=== PATIENT | female | born 1960 | race Caucasian/White ===

== ENCOUNTER 2021-10-06 09:24 | Outpatient (CLI) | payer MEDICAID, SELFPAY ==
[2021-10-06 11:30] LABS: Albumin* 4.1 g/dL (3.3-5.0); Chloride* 105 mmol/L (96-114)
[2021-10-06 11:31] LABS: Potassium* 4.4 mmol/L (3.6-5.1)
[2021-10-06 11:33] LABS: Aspartate Amino Transferase* 25 U/L (12-35); Bilirubin Total* 0.3 mg/dL (0.1-1.5); Blood Urea Nitrogen* 20 mg/dL (7-30); Carbon Dioxide* 27 mmol/L (20-32); Cholesterol* 214 mg/dL (90-199); Creatinine* 0.7 mg/dL (0.5-1.5); Estimated Glomerular Filt Rate 99 ml/min; Total Protein* 6.6 g/dL (6.0-8.3)
[2021-10-06 11:34] LABS: Alanine Aminotransferase* 25 U/L (4-35); Alkaline Phosphatase* 82 U/L (40-150); Calcium* 9.1 mg/dL (8.4-10.6); Glucose* 107 mg/dL (60-115); HDL Cholesterol* 36 mg/dL (>=50); LDL Cholesterol Calculated 126 mg/dL (<100); Triglycerides* 262 mg/dL (40-149)
[2021-10-07 09:13] LABS: Sodium* 138 mmol/L (135-149)
[2021-10-08 12:45] LABS: Iron* 78 ug/dL (37-170)
[2021-10-08 12:55] LABS: Percent Iron Saturation 25 % (20-50); Total Iron Binding Capacity 312 ug/dL (265-497)
[2021-10-08 13:36] LABS: Vitamin B12* 476 pg/mL (243-894)
== END 2021-10-06 09:25 | disposition home or self-care (01) ==
LOC: NFLDREF 09:25
PROVIDERS: PCP Physician Assistant Medical; Visit Provider Physician Assistant Medical
DX: Z00.00 Encounter for general adult medical examination without abnormal findings (principal); D64.9 Anemia, unspecified; K21.9 Gastro-esophageal reflux disease without esophagitis
CPT/HCPCS: 80053; 80061; 82607; 83540; 83550

== ENCOUNTER 2021-10-08 09:48 | Outpatient (CLI) | payer MEDICAID, SELFPAY | END 2021-10-08 09:49 | disposition home or self-care (01) | PROVIDERS: PCP Physician Assistant Medical; Visit Provider Physician Assistant Medical | DX: Z00.00 Encounter for general adult medical examination without abnormal findings (principal); D64.9 Anemia, unspecified | CPT/HCPCS: 87624; 88175 ==

== ENCOUNTER 2021-12-10 07:23 | Outpatient (CLI) | payer MEDICAID, SELFPAY | END 2021-12-10 07:24 | disposition home or self-care (01) | PROVIDERS: PCP Physician Assistant Medical; Visit Provider Surgery | DX: K44.9 Diaphragmatic hernia without obstruction or gangrene (principal); K92.2 Gastrointestinal hemorrhage, unspecified; K63.5 Polyp of colon; K57.30 Diverticulosis of large intestine without perforation or abscess without bleeding; Z83.71 Family history of colonic polyps | CPT/HCPCS: 43239; 45385; 88305; 88342; 99153; J1200; J2250; J3010 ==

== ENCOUNTER 2021-12-11 13:33 | Outpatient (CLI) | payer MEDICAID, SELFPAY ==
--- NOTE | 2021-12-11 13:40 | CRLHL7_ITS ---
For Patients: As a result of the Century Cures Act, medical imaging exams and procedure reports are released immediately into your electronic medical record. You may view this report before your referring provider. If you have questions, please contact your health care provider. BILATERAL SCREENING MAMMOGRAM WITH COMPUTER-AIDED DETECTION TECHNIQUE: CC and MLO views were obtained. These mammographic images have been obtained using full-field digital technique. These mammographic images were interpreted with the benefit of computer-aided detection. COMPARISON FILM: No previous, re-establish baseline 10+ years. FINDINGS: There are scattered areas of fibroglandular density IMPRESSION: There is no radiographic evidence for malignancy. ASSESSMENT: BI-RADS Category 1: Negative RECOMMENDATION: Routine screening mammogram in 1 year. A lay language report of this examination will be provided to the patient. Reza Weiss M.D. Diagnostic Radiologist [email or web address] JIMMY/Dictated by: Reza Weiss MD @ 12/11/2021 2:16:00 PM (Electronically Signed)
== END 2021-12-11 13:34 | disposition home or self-care (01) ==
LOC: MAMMO 13:33
PROVIDERS: PCP Physician Assistant Medical; Visit Provider Physician Assistant Medical
DX: Z12.31 Encounter for screening mammogram for malignant neoplasm of breast (principal)
CPT/HCPCS: 77063; 77067

== ENCOUNTER 2022-09-08 13:24 | Outpatient (CLI) | payer MEDICAID, SELFPAY | END 2022-09-08 13:25 | disposition home or self-care (01) | LOC: LKVREF 13:30 | PROVIDERS: PCP Physician Assistant Medical; Visit Provider Physician Assistant Medical | DX: I10 Essential (primary) hypertension (principal); D64.9 Anemia, unspecified; E78.5 Hyperlipidemia, unspecified | CPT/HCPCS: 84439; 84443 ==

== ENCOUNTER 2022-09-16 14:31 | Outpatient (CLI) | payer MEDICAID, SELFPAY ==
--- NOTE | 2022-09-16 15:00 | CRLHL7_ITS ---
For Patients: As a result of the Century Cures Act, medical imaging exams and procedure reports are released immediately into your electronic medical record. You may view this report before your referring provider. If you have questions, please contact your health care provider. Indication: Palpable lump Technique: Grayscale and color Doppler ultrasound of the left upper chest soft tissues performed. Comparison: None Findings: There is a circumscribed isoechoic solid mass without internal vascularity within the subcutaneous tissues. This measures 3.6 x 1.2 x 2.6 cm. Impression: Subcutaneous lipoma. Dictated by Reza Weiss MD @ 09/16/2022 3:11:38 PM (Electronically Signed)
== END 2022-09-16 14:32 | disposition home or self-care (01) ==
LOC: US 14:31
PROVIDERS: PCP Physician Assistant Medical; Visit Provider Physician Assistant Medical
DX: M79.89 Other specified soft tissue disorders (principal)
CPT/HCPCS: 76604

== ENCOUNTER 2022-09-28 12:33 | Outpatient (CLI) | payer MEDICAID, SELFPAY ==
[2022-09-28 13:45] VITALS: BP 166/81; PULSE 99
--- NOTE | 2022-09-28 14:54 | PN_ITS ---
REFERRING AND PRIMARY PROVIDER Zuleyka Fajardo PA-C INDICATIONS Dyspnea. ? Resting EKG: ?Sinus rhythm, 79 beats per minute, flipped T-waves between V1 without any ST changes. ? Resting blood pressure 123/79. STRESS TEST The patient was exercised following standard Jung protocol on the treadmill. ?Test was terminated due to patient reaching heart rate and reaching exercise capacity, having shortness of breath. ?There was no ischemia or arrhythmia noted. ?Duration of stress test was 5 minutes and 16 seconds, equivalent to 7.1 mets. ?She had a maximum heart rate of 150 beats per minute which was 111% and the calculated target heart rate of 135. ?She had a maximum blood pressure of 108/94. ?Rate pressure product was 23,040. ?The patient tolerated the stress test well, echo images are pending to couple this for a full formal diagnostic. ? ASSESSMENT Subjectively negative, objectively negative, EKG portion of this stress test. PLAN Patient discharged to home, she will await for formal diagnostic once the echo images are read and her primary care provider has a full formal report. Dictated Date: 09/28/2022 14:54:30 CDT Internal Job ID: [id number]
== END 2022-09-28 12:34 | disposition home or self-care (01) ==
LOC: STRESS 12:34
PROVIDERS: PCP Physician Assistant Medical; Visit Provider Family Medicine
DX: R06.09 Other forms of dyspnea (principal)
CPT/HCPCS: 93016; 93325; 93351

== ENCOUNTER 2022-10-12 07:28 | Outpatient (CLI) | payer MEDICAID, SELFPAY | END 2022-10-12 07:29 | disposition home or self-care (01) | LOC: NFLDREF 10-13 08:17 | PROVIDERS: PCP Physician Assistant Medical; Referring Provider Physician Assistant Medical; Visit Provider Physician Assistant Medical | DX: E03.9 Hypothyroidism, unspecified (principal); R79.89 Other specified abnormal findings of blood chemistry | CPT/HCPCS: 84439; 84443 ==

== ENCOUNTER 2022-10-15 10:11 | Outpatient (CLI) | payer MEDICAID, SELFPAY ==
--- NOTE | 2022-10-15 10:15 | CRLHL7_ITS ---
For Patients: As a result of the Century Cures Act, medical imaging exams and procedure reports are released immediately into your electronic medical record. You may view this report before your referring provider. If you have questions, please contact your health care provider. INDICATION: HYPOTHYROIDISM COMPARISON: none TECHNIQUE: Jules scale and color Doppler images were acquired of the thyroid gland. FINDINGS: The thyroid gland demonstrates heterogeneous echogenicity and has a smooth outer contour. The right lobe measures 4.0 x 1.3 x 1.3 cm and the left lobe measures 3.0 x 1.0 x 1.3 cm in size. There are no suspicious masses or nodules. The color Doppler images demonstrate normal vascularity. Circumscribed nodule located posterior to the right thyroid lobe measuring 8 x 5 x 7 millimeters. IMPRESSION: Heterogeneous thyroid. No thyroid nodule appears Probable lymph node posterior to the right thyroid lobe measuring 8 millimeters. Dictated by Reza Weiss MD @ 10/15/2022 11:33:03 AM (Electronically Signed)
== END 2022-10-15 10:12 | disposition home or self-care (01) ==
PROVIDERS: PCP Physician Assistant Medical; Visit Provider Physician Assistant Medical
DX: E03.9 Hypothyroidism, unspecified (principal)
CPT/HCPCS: 76536

== ENCOUNTER 2022-10-18 19:59 | Outpatient (CLI) | payer MEDICAID, SELFPAY ==
--- NOTE | 2022-10-27 08:04 | W.PM.SLEEP ---
Sleep Study Details Details Interpreting Provider: Deanne Date of Sleep Study: 10/18/22 Sleep Study Details: STUDY TYPE:? Hospital-based ? BMI:? 35.5 ORDERING PROVIDER:Brianda Fajardo INDICATION:? Concerns about sleep apnea ? SLEEP SUMMARY:? Total sleep time 250.5 minutes, efficiency 57.2, arousal index 37.1 RESPIRATORY SUMMARY:? Mean oxygen awake 97 asleep 97, minimum 87 0.3 minutes oxygen between 80 and 88% AHI 8.4, RDI 24.2. No supine REM sleep was seen The nonsupine REM AHI was 35 PERIODIC LIMB MOVEMENTS OF SLEEP:? None CARDIAC:? Awake 68, asleep 62. No arrhythmias noted IMPRESSION:? Moderate obstructive sleep apnea with an RDI of 24.2, AHI 8.4, so nonsupine REM AHI 35. RECOMMENDATION: Treatment options would include AutoSet CPAP, dental appliance and/or weight loss.
== END 2022-10-18 20:00 | disposition home or self-care (01) ==
PROVIDERS: PCP Physician Assistant Medical; Visit Provider Physician Assistant Medical
DX: G47.33 Obstructive sleep apnea (adult) (pediatric) (principal)
CPT/HCPCS: 95810

== ENCOUNTER 2022-12-16 14:17 | Outpatient (CLI) | payer MEDICAID, SELFPAY | END 2022-12-16 14:18 | disposition home or self-care (01) | LOC: LKVREF 14:19 | PROVIDERS: PCP Physician Assistant Medical; Visit Provider Physician Assistant Medical | DX: Z00.00 Encounter for general adult medical examination without abnormal findings (principal); E03.9 Hypothyroidism, unspecified; I10 Essential (primary) hypertension; E78.5 Hyperlipidemia, unspecified; D64.9 Anemia, unspecified; B00.1 Herpesviral vesicular dermatitis | CPT/HCPCS: 84439; 84443; 87529 ==

== ENCOUNTER 2023-02-24 09:11 | Outpatient (RCR) | payer MEDICAID, SELFPAY | END 2023-03-17 13:35 | disposition home or self-care (01) | PROVIDERS: PCP Physician Assistant Medical; Visit Provider Nurse Practitioner Family | DX: R42 Dizziness and giddiness (principal); Z51.89 Encounter for other specified aftercare | CPT/HCPCS: 97110; 97162 ==

== ENCOUNTER 2023-10-06 09:45 | Outpatient (CLI) | payer MEDICAID, SELFPAY | END 2023-10-06 09:46 | disposition home or self-care (01) | PROVIDERS: PCP Physician Assistant Medical; Visit Provider Physician Assistant Medical | DX: E78.5 Hyperlipidemia, unspecified (principal); E03.9 Hypothyroidism, unspecified; I10 Essential (primary) hypertension; Z11.59 Encounter for screening for other viral diseases | CPT/HCPCS: 80053; 80061; 84443; 86703; 86803 ==

== ENCOUNTER 2023-12-22 14:30 | Outpatient (CLI) | payer MEDICAID, SELFPAY ==
--- OUTSIDE RECORDS SUMMARY | 2023-12-22 14:32 | XMS_ITS | Encounter Summary ---
[facility] Address [address] [place] [id number] Care Team Providers Care Core Checker Name Role Phone Unavailable Primary Care Provider Unavailabl e Reason for Visit * Reason Comments Eye Exam Encounter Details Date Type Department Care Team (Late st Contact Info) Description 2023 11:10 AM CDT Office Visit [facility] [place] [id number] [place] [phone] Jami Knight, OD [address] [place] [address] Examination of eyes and vision (Primary Dx); Astigmatism of both eyes with presbyopia; Age-related nuclear cataract of both eyes Social History Tobacco Use Types Packs/Day Years Used Date Smoking Tobacco: Never Tobacco Cessation:Counseling Given: Not Answered Alcohol Use Standard Drinks/Week Comments Not Currently 0 (1 standard drink = 0.6 oz pur e alcohol) Sex and Gender Information Value Date Recorded Sex Assigned at Not on file Gender Identity Not on file Sexual Orientation Not on file documented as of this encounter Progress Notes * Jami Knight, OD - 2023 11:10 AM CDT Patient is alert and feels well. Medical history, current medications, and allergies reviewed. Routine eye exam. Assessment: ICD-10-CM 1. Examination of eyes and vision Z01.00 Refractive State, Determination Of - Bilateral 2. Astigmatism of both eyes with presbyopia H52.203 Refractive State, Determination Of - Bilateral H52.4 3. Age-related nuclear cataract of both eyes H25.13 Refractive State, Determination Of - Bilateral Plan: 1-2. Discussed findings with patient. Rx given for new glasses if desired. 3. Monitor. Surgery consult not recommended at this time. UV protection advised. RTC 1 year or sooner as needed. documented in this encounter Plan of Treatment Not on file documented as of this encounter Visit Diagnoses Diagnosis Examination of eyes and vision- Primary Astigmatism of both eyes with presbyopia Age-related nuclear cataract of both eyes Senile nuclear sclerosis documented in this encounter
--- OUTSIDE RECORDS SUMMARY | 2023-12-22 14:32 | XMS_ITS | Clinical Summary ---
Author Organization [facility] Address [address], [place] [address] Care Team Providers Care Truck Loader Overhead Crane Name Role Phone Unavailable Primary Care Provider Unavailabl e Source Comments You are receiving this document as you are listed as the primary care provider,follow-up provider, or the patient has been referred to you for consultation.This is in compliance with the Medicare and[facility] EHR Incentive Program,which states Providers who transition their patient to another setting of careor provider of care or refers their patient to another provider of care shouldprovide summary care record for each transition of care or referral. [facility] Allergies No known active allergies Medications Medication Sig Dispensed Refills Start Date End Date Status levothyroxine (SYNTHROID) 50 MCG tablet Take 1 Tablet (50 mcg) by mouth daily. 08/19/2023 Active losartan (COZAAR) 25 MG tablet Take 1 Tablet (25 mg) by mouth daily. 11/19/2023 Active omeprazole (PRILOSEC) 20 MG capsule Take 1 Capsule (20 mg) by mouth every morning. 11/03/2023 Active rosuvastatin (CRESTOR) 10 MG tablet Take 1 Tablet (10 mg) by mouth daily at bedtime. 10/19/2023 Active valACYclovir (VALTREX) 1 g tablet Take 1 Tablet (1,000 mg) by mouth daily. 10/06/2023 Active Encounters Date Type Department Care Team Description 2023 11:10 AM CDT Office Visit [facility] [place] [address] [place] [phone] AntoniaJami wallace A, OD Examination of eyes and vision (Primary Dx); Astigmatism of both eyes with presbyopia; Age-related nuclear cataract of both eyes from Last 3 Months Family History Medical History Relation Name Comments Amblyopia/Strabismus Negative Family History Cataract Negative Family History Glaucoma Negative Family History Macular Degeneration Negative Family History Retinal Detachment Negative Family History Social History Tobacco Use Types Packs/Day Years Used Date Smoking Tobacco: Never Tobacco Cessation:Counseling Given: Not Answered Alcohol Use Standard Drinks/Week Comments Not Currently 0 (1 standard drink = 0.6 oz pur e alcohol) Sex and Gender Information Value Date Recorded Sex Assigned at Not on file Gender Identity Not on file Sexual Orientation Not on file Plan of Treatment Health Maintenance Due Date Last Done Comments Cervical Cancer Screening Due 1960 Colon Cancer Screening Plan Due 1960 Hep C Screening (Preventive Services) 1960 Mammogram 1960 HIV Screening (Preventive Services) 1976 Adult Preventive Visit 1978 Cholesterol 2005 Zoster/Shingles (2 of 2) 02/07/2023 12/13/2022 COVID-19 Vaccine (1 - 2023-2 5 season) 2023 Influenza (#1) 2023 12/13/2022, 12/18/2021 DTaP/Tdap/Td (2 - Tdap) 12/13/2032 12/13/2022 RSV (1 - 1-dose 75+ series) 12/13/2035 HepA Aged Out No longer eligi ble based on patient's age to complete this topic HepB Aged Out No longer eligi ble based on patient's age to complete this topic Hib Aged Out No longer eligi ble based on patient's age to complete this topic IPV (Polio) Aged Out No longer eligi ble based on patient's age to complete this topic MCV4 Aged Out No longer eligi ble based on patient's age to complete this topic Pneumococcal Aged Out No longer eligi ble based on patient's age to complete this topic
--- NOTE | 2023-12-22 14:40 | CRLHL7_ITS ---
For Patients: As a result of the Century Cures Act, medical imaging exams and procedure reports are released immediately into your electronic medical record. You may view this report before your referring provider. If you have questions, please contact your health care provider. BILATERAL DIGITAL SCREENING MAMMOGRAM WITH COMPUTER-AIDED DETECTION AND TOMOSYNTHESIS CLINICAL HISTORY: Routine screening exam. COMPARISON: 12/11/2021. TECHNIQUE: Digital mammogram in CC and MLO projections including computer-aided detection (CAD). Tomosynthesis was used in this interpretation. BREAST COMPOSITION: There are scattered areas of fibroglandular density. FINDINGS: RIGHT Breast: No suspicious findings. LEFT Breast: Focal asymmetric density retroareolar plane 4 cm from the nipple. IMPRESSION: LEFT breast asymmetry/mass. RECOMMENDATIONS: Additional mammographic views of the LEFT breast including 3D spot compression CC/MLO. LEFT breast ultrasound may also be required. BI-RADS Category 0: Incomplete: Need Additional Imaging Evaluation and/or Prior Mammograms for Comparison [facility] will contact the patient for follow-up. A lay language report of this examination will be provided to the patient. Dictated by Reza Weiss MD @ 12/26/2023 10:25:20 AM jj/Dictated by: Reza Weiss MD @ 12/26/2023 10:25:00 AM (Electronically Signed)
== END 2023-12-22 14:31 | disposition home or self-care (01) ==
LOC: MAMMO 14:30
PROVIDERS: PCP Physician Assistant Medical; Visit Provider Physician Assistant Medical
DX: Z12.31 Encounter for screening mammogram for malignant neoplasm of breast (principal); N63.20 Unspecified lump in the left breast, unspecified quadrant
CPT/HCPCS: 77063; 77067; T1013

== ENCOUNTER 2024-01-10 10:36 | Outpatient (CLI) | payer MEDICAID, SELFPAY ==
--- NOTE | 2024-01-10 10:45 | CRLHL7_ITS ---
For Patients: As a result of the Cures Act, medical imaging exams and procedure reports are released immediately into your electronic medical record. You may view this report before your referring provider. If you have questions, please contact your health care provider. DIGITAL DIAGNOSTIC LEFT MAMMOGRAM USING TOMOSYNTHESIS AND COMPUTER-AIDED DETECTION LEFT BREAST ULTRASOUND CLINICAL HISTORY: LEFT breast mass/asymmetry. COMPARISON: 12/22/2023. TECHNIQUE: Digital LEFT mammogram in two projections. Tomosynthesis was used in this interpretation. Real-time ultrasound imaging of LEFT breast with imaging documentation. BREAST COMPOSITION: There are scattered areas of fibroglandular density. FINDINGS: 3D spot compression CC/MLO LEFT breast mammogram images submitted. Decreased conspicuity of previously noted nodular density within the retroareolar region. No architectural distortion. No suspicious calcifications. Targeted LEFT breast ultrasound performed in the retroareolar plane slightly upper outer quadrant. In this location, there is an ovoid hypoechoic nodule or cyst at posterior depth measuring 7 x 4 x 10 millimeters. No internal vascularity. No distal acoustic shadowing. IMPRESSION: Benign cyst or fibroadenoma posterior depth LEFT breast retroareolar plane 2 o`clock measuring 10 millimeters. No suspicious findings. RECOMMENDATIONS: Annual BILATERAL screening mammography. Results and recommendations discussed with the patient. BI-RADS Category 2: Benign A lay language report of this examination will be provided to the patient. Dictated by Reza Weiss MD @ 01/10/2024 1:03:05 PM vielka/Dictated by: Reza Weiss MD @ 01/10/2024 1:03:00 PM (Electronically Signed)
--- OUTSIDE RECORDS SUMMARY | 2024-01-10 10:45 | XMS_ITS | Encounter Summary ---
[facility] Address [address] [place] [address] Care Team Providers Care Tack Puller Name Role Phone Unavailable Primary Care Provider Unavailabl e Reason for Visit * Reason Comments Eye Exam Encounter Details Date Type Department Care Team (Late st Contact Info) Description 2023 11:10 AM CDT Office Visit [facility] [place] [id number] [place] [phone] Jami Knight, OD [address] [place] [address] Examination of eyes and vision (Primary Dx); [...]
--- OUTSIDE RECORDS SUMMARY | 2024-01-10 10:45 | XMS_ITS | Clinical Summary ---
Author Organization [facility] Address [address], [place] [address] Care Team Providers Care Supervisor Filling And Packing Name Role Phone Unavailable Primary Care Provider Unavailabl e Source Comments You are receiving this document as you are listed as the primary care provider,follow-up provider, or the patient has been referred to you for consultation.This is in compliance with the Medicare and[facility] Centercaid EHR Incentive Program,which states Providers who transition their patient to another setting of careor provider of care or refers their patient to another provider of care shouldprovide summary care record for each transition of care or referral. [facility] Allergies No known active allergies Medications Medication [...] Description 2023 11:10 AM CDT Office Visit [facility] [place] [address] [place] [phone] AntoniaJami wallace A, OD Examination [...] (2 of 2) 02/07/2023 12/13/2022 COVID-19 Vaccine ( - 2023-2 5 season) 2023 Influenza (#1) [...] on patient's age to complete this topic RSV Aged Out No longer eligi ble based on patient's age to complete this topic MCV4 Aged Out No longer eligi ble based on patient's age to complete this topic Pneumococcal Aged Out No longer eligi ble based on patient's age to complete this topic
--- NOTE | 2024-01-10 11:15 | CRLHL7_ITS ---
For Patients: As a result of the Cures Act, medical imaging exams and procedure reports are released immediately into your electronic medical record. You may view this report before your referring provider. If you have questions, please contact your health care provider. PLEASE SEE DIGITAL DIAGNOSTIC LEFT MAMMOGRAM PERFORMED SAME DAY CRL:[email or web address] vora/Dictated by: Reza Weiss MD @ 01/10/2024 1:03:00 PM (Electronically Signed)
== END 2024-01-10 10:37 | disposition home or self-care (01) ==
LOC: MAMMO 10:36
PROVIDERS: PCP Physician Assistant Medical; Visit Provider Physician Assistant Medical
DX: N63.20 Unspecified lump in the left breast, unspecified quadrant (principal); R92.8 Other abnormal and inconclusive findings on diagnostic imaging of breast
CPT/HCPCS: 76642; 77065; T1013; G0279

== ENCOUNTER 2024-01-30 11:05 | Outpatient (CLI) | payer MEDICAID, SELFPAY ==
--- OUTSIDE RECORDS SUMMARY | 2024-01-30 11:07 | XMS_ITS | Encounter Summary ---
Author Organization [facility] Address [address] [place] [address] Care Team Providers Care Staffing Manager Name Role Phone Unavailable Primary Care Provider Unavailabl e Reason for Visit * Reason Comments Eye Exam Encounter Details Date Type Department Care Team (Late st Contact Info) Description 2023 11:10 AM CDT Office Visit [facility] [place] [address] [place] [phone] Jami Knight, OD [address] [place] [address] Examination of eyes and vision (Primary Dx); [...]
--- OUTSIDE RECORDS SUMMARY | 2024-01-30 11:07 | XMS_ITS | Clinical Summary ---
Author Organization [facility] Address [address], [place] [address] Care Team Providers Care Brazer Assembler Name Role Phone Unavailable Primary Care Provider Unavailabl e Source Comments You are receiving this document as you are listed as the primary care provider,follow-up provider, or the patient has been referred to you for consultation.This is in compliance with the Medicare andSt. [facility] Campuscaid EHR Incentive Program,which states Providers who transition their patient to another setting of careor provider of care or refers their patient to another provider of care shouldprovide summary care record for each transition of care or referral. [facility] Allergies No known active allergies [...] Description 2023 11:10 AM CDT Office Visit [facility] [place] [address] [place] [phone] AntoniaJami wallace A, OD Examination [...]
== END 2024-01-30 11:06 | disposition home or self-care (01) ==
PROVIDERS: PCP Physician Assistant Medical; Visit Provider Physician Assistant Medical
DX: D64.9 Anemia, unspecified (principal); E03.9 Hypothyroidism, unspecified; R73.03 Prediabetes; I10 Essential (primary) hypertension; E78.5 Hyperlipidemia, unspecified; L60.3 Nail dystrophy
CPT/HCPCS: 80053; 80061; 82306; 82728; 83540; 84443

== ENCOUNTER 2024-05-31 10:15 | Outpatient (CLI) | payer MEDICAID, SELFPAY | END 2024-05-31 10:16 | disposition home or self-care (01) | PROVIDERS: PCP Physician Assistant Medical; Visit Provider Physician Assistant Medical | DX: E55.9 Vitamin D deficiency, unspecified (principal); D64.9 Anemia, unspecified | CPT/HCPCS: 82306; 82607 ==

== ENCOUNTER 2024-09-27 07:57 | Outpatient (CLI) | payer MEDICAID, SELFPAY | END 2024-09-27 07:58 | disposition home or self-care (01) | LOC: NFLDREF 10-01 14:20 | PROVIDERS: PCP Physician Assistant Medical; Referring Provider Physician Assistant Medical; Visit Provider Physician Assistant Medical | DX: E55.9 Vitamin D deficiency, unspecified (principal); E03.9 Hypothyroidism, unspecified; D64.9 Anemia, unspecified; R73.03 Prediabetes; I10 Essential (primary) hypertension; E78.5 Hyperlipidemia, unspecified | CPT/HCPCS: 80053; 80061; 82306; 84443 ==